=== PATIENT | female | born 1970 | race Caucasian/White ===

== ENCOUNTER 2017-04-14 06:43 | Emergency (ER) | payer OTHER ==
[2017-04-14] MEDS ORDERED: IV NORMAL SALINE 1,000ML 1,000 ML IV SCH (06:56)
[2017-04-14] MEDS ORDERED: ZIPRASIDONE IM 20 MG VIAL. IM ONE ×2 (06:58→07:30)
[2017-04-14] MEDS ORDERED: 0.9 % SODIUM CHLORIDE 10 ML DISP.SYRIN. IV PRN (07:00)
[2017-04-14 07:57] LABS: BACTERIA,URINE 0 /HPF (0-FEW); BILIRUBIN,URINE NEG (NEG); CLARITY,URINE HAZY; COLOR,URINE STRAW; GLUCOSE,URINE NEG (NEG); NITRITE,URINE NEG (NEG); RBC,URINE 0 /HPF (0-2); SQUAMOUS EPITHELIAL CELL,UR MOD /LPF; UROBILINOGEN,URINE 0.2 mg/dL (0.2 mg/dL); WBC,URINE RARE /HPF (0-4)
[2017-04-14 07:59] LABS: BARBITURATES NEG (NEG); BENZODIAZEPINES NEG (NEG); CANNABINOIDS NEG (NEG); COCAINE NEG (NEG); METHADONE NEG (NEG); OPIATES NEG (NEG)
[2017-04-14 08:09] LABS: AMPHETAMINE/METHAMPHETAMINE POS (NEG); PHENCYCLIDINE NEG (NEG)
[2017-04-14] MEDS ORDERED: HALOPERIDOL LACT 5 MG/ML VIAL. IVP ONE (08:15)
[2017-04-14 09:19] LABS: BASO % 0 % (0-3); EOS % 1 % (0-3); HEMATOCRIT 38.1 % (36.0-47.0); HEMOGLOBIN 12.6 g/dL (12.0-15.5); LYMPH # 1.8 x10^3/uL (1.0-4.8); LYMPH % 31 % (24-48); MEAN CORPUSCULAR HEMOGLOBIN 30 pg (25-35); MEAN CORPUSCULAR HGB CONC 33 g/dL (31-37); MEAN CORPUSCULAR VOLUME 90 fL (79-100); MONO # 0.4 x10^3/uL (0.0-1.1); MONO % 8 % (0-9); NEUT # 3.5 x10^3uL (1.8-7.7); NEUT % 60 % (31-73); PLATELET COUNT 233 x10^3/uL (140-400); RED BLOOD COUNT 4.26 x10^6/uL (3.50-5.40); RED CELL DISTRIBUTION WIDTH 14.7 % (11.5-14.5); WHITE BLOOD COUNT 5.8 x10^3/uL (4.0-11.0)
[2017-04-14 09:51] LABS: ALBUMIN 3.7 g/dL (3.4-5.0); CALCIUM 8.7 mg/dL (8.5-10.1); CREATININE 0.6 mg/dL (0.6-1.0); DIRECT BILIRUBIN 0.1 mg/dL (0.0-0.2); GFR 108.6; MAGNESIUM 2.1 mg/dL (1.8-2.4); POTASSIUM 3.7 mmol/L (3.5-5.1); TOTAL BILIRUBIN 0.5 mg/dL (0.2-1.0); TOTAL PROTEIN 6.8 g/dL (6.4-8.2)
[2017-04-14 09:58] LABS: ACETAMIN < 2.0 mcg/mL (10-30); ETHANOL < 10 mg/dL (0-10); SALIC 2.8 mg/dL (2.8-20.0)
[2017-04-14] MEDS ORDERED: IV NORMAL SALINE 1,000ML 1,000 ML IV ONE (10:15)
--- NOTE | 2017-04-14 10:56 | PHYS DOC ---
Past History Past Medical History: Anxiety, Hepatitis Past Surgical History: No Surgical History Smoking: Non-smoker Drug Use: Amphetamine, Methamphetamine Adult General Chief Complaint Chief Complaint: ANXIETY/PANIC ATTACK HPI HPI 46-year-old female patient with history of methamphetamine abuse brought in by EMS because of agitation and panic attack. Patient was naked at arrival of EMS and was very agitated and talking constantly without making any sense. She was not able to give history in ER. Review of Systems Review of Systems Unable to obtain review of systems because of patient condition Current Medications Current Medications Current Medications Medications (Trade) Dose Ordered Sig/Bobo Start Time Stop Time Status Last Admin Dose Admin Haloperidol Lactate (Haldol) 5 mg 1X ONCE 04/14/17 08:15 04/14/17 08:16 DC 04/14/17 08:11 5 MG Sodium Chloride 1,000 ml @ 1,000 mls/hr 1X ONCE 04/14/17 10:15 04/14/17 11:14 Sodium Chloride (Normal Saline Flush) 10 ml QSHIFT PRN 04/14/17 07:00 Ziprasidone (Geodon Im) 10 mg 1X ONCE 04/14/17 07:30 04/14/17 07:31 DC 04/14/17 07:29 10 MG Allergies Allergies Allergies Coded Allergies Type Severity Reaction Last Updated Verified Sulfa (Sulfonamide Antibiotics) Allergy Unknown 04/14/17 Yes codeine Allergy Unknown 04/14/17 Yes Physical Exam Physical Exam Constitutional: Moderate distress, agitated and anxious and uncooperative] HENT: Normocephalic, atraumatic, limited exam, Neck: Normal range of motion, no tenderness, supple, no stridor. [] Cardiovascular: Tachycardia, no murmur [] Lungs & Thorax: Bilateral breath sounds clear to auscultation [] Abdomen: Bowel sounds normal, soft, no tenderness, no masses, no pulsatile masses. [] Skin: Warm, dry, no erythema, no rash. [] Back: No deformity Extremities: Moves all extremities Neurologic: Awake, disoriented, limited exam Psychologic: Agitated, unable to evaluate Current Patient Data Vital Signs Vital Signs Date Time Temp Pulse Resp B/P (MAP) Pulse Ox O2 Delivery O2 Flow Rate FiO2 04/14/17 06:45 98.6 118 24 98 Room Air Lab Results Laboratory Tests Test 04/14/17 07:10 04/14/17 09:10 Urine Collection Type Unknown Urine Color Straw Urine Clarity Hazy Urine pH 6.5 Urine Specific [place] 1.010 Urine Protein Neg (NEG-TRACE) Urine Glucose (UA) Neg mg/dL (NEG) Urine Ketones (Stick) Trace mg/dL (NEG) Urine Blood Trace (NEG) Urine Nitrite Neg (NEG) Urine Bilirubin Neg (NEG) Urine Urobilinogen Dipstick 0.2 mg/dL (0.2 mg/dL) Urine Leukocyte Esterase Trace (NEG) Urine RBC 0 /HPF (0-2) Urine WBC Rare /HPF (0-4) Urine Squamous Epithelial Cells Mod /LPF Urine Bacteria 0 /HPF (0-FEW) Urine Mucus Slight /LPF Urine Opiates Screen Neg (NEG) Urine Methadone Screen Neg (NEG) Urine Barbiturates Neg (NEG) Urine Phencyclidine Screen Neg (NEG) Urine Amphetamine/Methamphetamine Pos (NEG) Urine Benzodiazepines Screen Neg (NEG) Urine Cocaine Screen Neg (NEG) Urine Cannabinoids Screen Neg (NEG) Urine Ethyl Alcohol Neg (NEG) White Blood Count 5.8 x10^3/uL (4.0-11.0) Red Blood Count 4.26 x10^6/uL (3.50-5.40) Hemoglobin 12.6 g/dL (12.0-15.5) Hematocrit 38.1 % (36.0-47.0) Mean Corpuscular Volume 90 fL (79-100) Mean Corpuscular Hemoglobin 30 pg (25-35) Mean Corpuscular Hemoglobin Concent 33 g/dL (31-37) Red Cell Distribution Width 14.7 % (11.5-14.5) H Platelet Count 233 x10^3/uL (140-400) Neutrophils (%) (Auto) 60 % (31-73) Lymphocytes (%) (Auto) 31 % (24-48) Monocytes (%) (Auto) 8 % (0-9) Eosinophils (%) (Auto) 1 % (0-3) Basophils (%) (Auto) 0 % (0-3) Neutrophils # (Auto) 3.5 x10^3uL (1.8-7.7) Lymphocytes # (Auto) 1.8 x10^3/uL (1.0-4.8) Monocytes # (Auto) 0.4 x10^3/uL (0.0-1.1) Eosinophils # (Auto) 0.0 x10^3/uL (0.0-0.7) Basophils # (Auto) 0.0 x10^3/uL (0.0-0.2) Sodium Level 138 mmol/L (136-145) Potassium Level 3.7 mmol/L (3.5-5.1) Chloride Level 105 mmol/L (98-107) Carbon Dioxide Level 23 mmol/L (21-32) Anion Gap 10 (6-14) Blood Urea Nitrogen 11 mg/dL (7-20) Creatinine 0.6 mg/dL (0.6-1.0) Estimated GFR (Cockcroft-Gault) 108.6 Glucose Level 94 mg/dL (70-99) Calcium Level 8.7 mg/dL (8.5-10.1) Magnesium Level 2.1 mg/dL (1.8-2.4) Total Bilirubin 0.5 mg/dL (0.2-1.0) Direct Bilirubin 0.1 mg/dL (0.0-0.2) Aspartate Amino Transferase (AST) 17 U/L (15-37) Alanine Aminotransferase (ALT) 20 U/L (14-59) Alkaline Phosphatase 68 U/L (46-116) Total Protein 6.8 g/dL (6.4-8.2) Albumin 3.7 g/dL (3.4-5.0) Salicylates Level 2.8 mg/dL (2.8-20.0) Salicylate Last Dose Date Unknown Salicylate Last Dose Time Unknown Acetaminophen Level < 2.0 mcg/mL (10-30) L Acetaminophen Last Dose Date Unknown Acetaminophen Last Dose Time Unknown Ethyl Alcohol Level < 10 mg/dL (0-10) EKG EKG [] Radiology/Procedures Radiology/Procedures [] Course & Med Decision Making Course & Med Decision Making Pertinent Labs reviewed. (See chart for details) Evaluation of patient in ER showed 46-year-old female patient with history of methamphetamine abuse brought into with agitation. Patient was uncooperative and restless and agitated and treated with Geodon and Haldol. Patient treated with 2 L of IV fluids and gradually became, and cooperative and states she swallowed methamphetamine 3 days ago. Patient denies suicidal and homicidal ideation and hallucination. Labs was unremarkable except for positive UDS for methamphetamine. Patient ambulated without problem and tolerated oral intake. Plan discharge patient home with diagnose of methamphetamine abuse. I've spoken with the patient and/or caregivers. I've explained the patient's condition, diagnosis and treatment plan based on information available to me at this time. I've answered the patient's and/or caregivers questions and addressed any concerns. The patient and/or caregivers have a good understanding the patient's diagnosis, condition and treatment plan as can be expected at this point. Vital signs have been stabilized. The patient's condition is stable for discharge from the emergency department. The patient will pursue further outpatient evaluation with her primary care provider or other designated consulting physician as outlined in the discharge instructions. Patient and/or caregivers are agreeable to this plan of care and follow-up instructions have been explained in detail. The patient and/or caregivers have received these instructions in written format and expressed understanding of these discharge instructions. The patient and her caregivers are aware that if any significant change in condition or worsening of symptoms should prompt him to immediately return to this of the closest emergency department. If an emergent department is not readily available I would encourage him to call 911. Dragon Disclaimer Dragon Disclaimer This electronic medical record was generated, in whole or in part, using a voice recognition dictation system. Departure Departure: Impression: Primary Impression: Methamphetamine abuse Additional Impressions: Agitation Tobacco abuse Tobacco abuse counseling Disposition: 01 HOME, SELF-CARE (At 1100) Condition: IMPROVED Referrals: PCP,UNKNOWN (PCP) Patient Instructions: Methamphetamine Abuse, Complications Additional Instructions: Drink plenty of liquids Follow-up with your primary care physician in 3-5 days Return to ER if not getting better Do not use methamphetamine Problem Qualifiers CONTRERAS MANUEL MD Apr 14, 2017 10:56
[2017-04-14 12:40] VITALS: BP 131/70
== END 2017-04-14 12:51 | disposition home or self-care (01) ==
LOC: ER 06:43
DX: F15.10 Other stimulant abuse, uncomplicated (principal); R45.1 Restlessness and agitation; Z72.0 Tobacco use; Z71.6 Tobacco abuse counseling; Z88.2 Allergy status to sulfonamides; Z88.5 Allergy status to narcotic agent
CPT/HCPCS: 36415; 80048; 80076; 80307; 81001; 83735; 85025; 87086; 96361; 96372; 96374; 99285; G0480; J1630; J3486; G0479; J7030

== ENCOUNTER 2019-03-03 08:29 | Emergency (ER) | payer MEDICAID, OTHER ==
[2019-03-03 08:38] VITALS: BP 157/111
[2019-03-03 09:19] LABS: BASO % 1 % (0-3); EOS # 0.1 x10^3/uL (0.0-0.7); EOS % 1 % (0-3); HEMATOCRIT 40.3 % (36.0-47.0); HEMOGLOBIN 13.4 g/dL (12.0-15.5); LYMPH # 1.7 x10^3/uL (1.0-4.8); LYMPH % 27 % (24-48); MEAN CORPUSCULAR HEMOGLOBIN 29 pg (25-35); MEAN CORPUSCULAR HGB CONC 33 g/dL (31-37); MEAN CORPUSCULAR VOLUME 88 fL (79-100); MONO # 0.6 x10^3/uL (0.0-1.1); MONO % 10 % (0-9); NEUT # 3.7 x10^3uL (1.8-7.7); NEUT % 61 % (31-73); PLATELET COUNT 255 x10^3/uL (140-400); RED BLOOD COUNT 4.59 x10^6/uL (3.50-5.40); RED CELL DISTRIBUTION WIDTH 13.9 % (11.5-14.5); WHITE BLOOD COUNT 6.1 x10^3/uL (4.0-11.0)
--- NOTE | 2019-03-03 09:27 | RAD ---
EXAM: Chest, single view. HISTORY: Chest wall pain. COMPARISON: None. FINDINGS: A frontal view of the chest is obtained. There is no infiltrate, pleural effusion or pneumothorax. The heart is normal in size. There are circumscribed nodules overlying the mid lungs due to nipple shadows. No suspicious nodule is seen. IMPRESSION: No acute pulmonary finding. Electronically signed by: Ca Al MD (03/03/2019 9:24 AM) [place] [id number]
[2019-03-03 09:28] LABS: BACTERIA,URINE MANY /HPF (0-FEW); BILIRUBIN,URINE NEG (NEG); CALCIUM 8.9 mg/dL (8.5-10.1); CLARITY,URINE TURBID; COLOR,URINE YELLOW; CREATININE 0.8 mg/dL (0.6-1.0); GFR 77.2; GLUCOSE,URINE NEG (NEG); NITRITE,URINE POS (NEG); POTASSIUM 3.7 mmol/L (3.5-5.1); UROBILINOGEN,URINE 0.2 mg/dL (0.2 mg/dL)
[2019-03-03 09:29] LABS: SQUAMOUS EPITHELIAL CELL,UR FEW /LPF
[2019-03-03 09:31] LABS: AMPHETAMINE/METHAMPHETAMINE POS (NEG); BARBITURATES NEG (NEG); BENZODIAZEPINES NEG (NEG); CANNABINOIDS NEG (NEG); COCAINE POS (NEG); METHADONE NEG (NEG); OPIATES NEG (NEG); PHENCYCLIDINE NEG (NEG)
[2019-03-03 09:37] LABS: ALBUMIN 3.6 g/dL (3.4-5.0); DIRECT BILIRUBIN 0.1 mg/dL (0.0-0.2); TOTAL BILIRUBIN 0.4 mg/dL (0.2-1.0); TOTAL PROTEIN 7.8 g/dL (6.4-8.2)
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
[2019-03-03] MEDS ORDERED: NITROFURANTOIN MONOHYD/M-CRYST 100 MG CAPSULE. PO ONE (10:00)
== END 2019-03-03 09:55 | disposition left against medical advice (07) ==
LOC: ER 08:29
DX: F30.9 Manic episode, unspecified (principal); N39.0 Urinary tract infection, site not specified; F15.10 Other stimulant abuse, uncomplicated; R07.81 Pleurodynia; M25.512 Pain in left shoulder; Z88.2 Allergy status to sulfonamides; Z88.5 Allergy status to narcotic agent
CPT/HCPCS: 36415; 71045; 80048; 80076; 80307; 81001; 81025; 85025; 87086; 99285; G0480